=== PATIENT | female | born 1985 | race Caucasian/White ===

== ENCOUNTER → 2016-06-26 | Outpatient (CLI) | payer MEDICAID | LOC: CIMAGING 07:59 | PROVIDERS: ATTEND Physician Assistant Medical | DX: M54.6 Pain in thoracic spine (principal) | CPT/HCPCS: 71020-PO ==

== ENCOUNTER → 2016-07-04 | Outpatient (CLI) | payer MEDICAID | LOC: CIMAGING 07:20 | PROVIDERS: ATTEND Physician Assistant Medical | DX: R10.9 Unspecified abdominal pain (principal) | CPT/HCPCS: 76700-PO ==

== ENCOUNTER 2016-08-20 09:46 | Day surgery (SDC) | payer OTHER ==
[2016-08-20] MEDS ORDERED: LIDOCAINE 2% 5 ML SDV ONE (10:13)
[2016-08-20] MEDS ORDERED: MIDAZOLAM 2 MG/2 ML VIAL ONE (10:13)
[2016-08-20] MEDS ORDERED: PROPOFOL/EMULSION 500 MG/50 ML BOTTLE IV ONE (10:13)
--- NOTE | 2016-08-20 11:35 | GPN ---
[f rep st] PROCEDURE NOTE PREPROCEDURE DIAGNOSIS: Noncardiac atypical chest pain. POSTPROCEDURE DIAGNOSIS: Normal upper endoscopy. PROCEDURE: EGD with biopsies. MEDICATIONS: Monitored anesthesia care. INDICATIONS: The patient is a 31-year-old female with a history of atypical chest pain who is here for upper endoscopy to evaluate for the etiology of her symptoms. The risks and the benefits of the procedure were discussed with the patient and consent obtained. The risks include, but not limited to, bleeding, perforation, and risks associated with sedation. The patient is ASA class 1. DESCRIPTION OF PROCEDURE: The end-viewing endoscope was inserted into the esophagus, into the stoma ch and the second portion of the duodenum. The esophagus appears normal. There is no evidence of v arices, esophagitis, or Zimmer esophagus. The stomach is normal. Biopsies were taken using cold b iopsy forceps to evaluate for Helicobacter pylori. The duodenum and second portion are normal. Bio psies were taken to evaluate for celiac disease using cold biopsy forceps. IMPRESSION: Normal upper endoscopy. No findings to explain the patient's chest pain. RECOMMENDATIONS: 1. Advance diet as tolerated. 2. Discharge to home with escort. 3. Follow up on the final pathology results. Results available within 10 days. Thank you for allowing me to participate in the care of your patient. Please do not hesitate to erica elder with questions. /[id number]/[id number]
== END 2016-08-20 12:20 | disposition home or self-care (01) ==
LOC: FSGY 09:46
PROVIDERS: ATTEND Internal Medicine Gastroenterology
PROC: 0DB98ZX Excision of Duodenum, Via Natural or Artificial Opening Endoscopic, Diagnostic (ICD-10-PCS; 2016-08-20)
PROC: 0DB68ZX Excision of Stomach, Via Natural or Artificial Opening Endoscopic, Diagnostic (ICD-10-PCS; principal; 2016-08-20 11:00)
DX: R07.9 Chest pain, unspecified (principal); K21.9 Gastro-esophageal reflux disease without esophagitis; K29.50 Unspecified chronic gastritis without bleeding
CPT/HCPCS: J2250; J2704